=== PATIENT | female | born 2000 | race Two or more races ===

== ENCOUNTER 2018-10-27 00:47 | Emergency (ER) | payer MEDICAID ==
[~2018-10-27] VITALS: Ht 162.6 cm; Wt 65.8 kg
[2018-10-27 04:34] VITALS: BP 113/63
[2018-10-27] MEDS ORDERED: methylPREDNISolone SOD SUCC 125 MG/2 ML VL IM ONE (05:30)
[2018-10-27] MEDS ORDERED: diphenhdrAMINE HCL 25 MG CAP PO ONE (05:30)
== END 2018-10-27 06:27 | disposition home or self-care (01) ==
LOC: ER 00:52
DX: R21 Rash and other nonspecific skin eruption (principal); R42 Dizziness and giddiness; R51 Headache
CPT/HCPCS: 96372; 99283; J2930

== ENCOUNTER 2020-08-31 19:56 | Emergency (ER) | payer MEDICAID ==
[~2020-08-31] VITALS: Ht 162.6 cm; Wt 61.7 kg
[2020-08-31 22:35] LABS: Basophils # (auto) 0 10 ^3/uL (0-0.2); Basophils % (auto) 0.5 % (0.0-2.0); Eosinophils # (auto) 0 10 ^3/uL (0-0.8); Eosinophils % (auto) 0.3 % (0.0-7.0); Hematocrit 36.9 % (36.0-46.0); Hemoglobin 12.4 g/dL (12.2-16.2); Lymphocytes # (auto) 3.2 10 ^3/uL (0.4-5.4); Lymphocytes % (auto) 36.6 % (10.0-50.0); Mean Corpuscular Hemoglobin 30.6 pg (28.0-32.0); Mean Corpuscular Hgb Conc. 33.6 g/dL (32.0-36.0); Mean Corpuscular Volume 91.2 fL (80.0-100.0); Monocytes # (auto) 0.8 10 ^3/uL (0-1.3); Monocytes % (auto) 9.6 % (0.0-12.0); Neutrophils # (auto) 4.7 10 ^3/uL (1.6-8.6); Red Blood Cells 4.04 10^6/uL (4.0-5.20); Red Cell Distribution Width 13.7 % (11.8-14.3); White Blood Cell 8.8 10^3/uL (4.4-10.8)
[2020-08-31 22:46] LABS: INR 1.03 (0.9-1.15); Partial Thromboplastin Time 29.4 sec (23.0-31.2)
[2020-08-31 22:51] LABS: Albumin 4.5 g/dL (3.4-5.0); Potassium 3.3 mmol/L (3.5-5.1)
[2020-08-31 22:54] LABS: BUN/Creatinine Ratio 15.2; Bilirubin, Total 0.5 mg/dL (0.2-1.0); Total Protein 8.9 g/dL (6.4-8.2)
[2020-09-01 04:14] VITALS: BP 131/87
== END 2020-09-01 06:22 | disposition left against medical advice (07) ==
LOC: ER 19:56
DX: S70.12XA Contusion of left thigh, initial encounter (principal); S70.11XA Contusion of right thigh, initial encounter; Z53.21 Procedure and treatment not carried out due to patient leaving prior to being seen by health care provider; X58.XXXA Exposure to other specified factors, initial encounter; Y93.89 Activity, other specified; Y92.89 Other specified places as the place of occurrence of the external cause; Y99.8 Other external cause status
CPT/HCPCS: 36415; 80053; 84702; 85025; 85610; 85730